=== PATIENT | female | born 1980 | race Two or more races ===

== ENCOUNTER 2018-07-03 06:54 | Emergency (ER) | payer OTHER, MEDICAID ==
[~2018-07-03] VITALS: Ht 160 cm; Wt 72.6 kg
[~2018-07-03 06:54] MED LIST: NKM
[2018-07-03 07:13] LABS: APPEARANCE,URINE CLEAR; BILIRUBIN, URINE NEGATIVE (NEGATIVE); GLUCOSE, URINE (UA) NEGATIVE (NEGATIVE); KETONES,URINE NEGATIVE (NEGATIVE); LEUKOCYTE ESTERASE ,URINE 2+ (NEGATIVE); NITRITE,URINE NEGATIVE (NEGATIVE); PH,URINE 5 (4.5-8.0); PROTEIN,URINE NEGATIVE (NEGATIVE); UROBILINOGEN,URINE NORMAL MG/DL (0.0-1.0)
--- NOTE | 2018-07-03 07:14 | Emergency Room Report ---
History of Present Illness General Chief Complaint: Abdominal Pain Source: Patient Present Illness HPI 37yo F p/w 2 days of LLQ abdominal pain, moderate to severe, constant, worse today, denies n/v denies f/c, diarrhea/constipation, vaginal discharge/itching/burning, but does report just now her urine was ceramic coater machine temperature. 2 days ago she took tylenol for it with good relief, and reports no other alleviating/exacerbating factors. Allergies: Coded Allergies: No Known Allergies (Unverified , 02/12/15) Patient History Past Medical History: see triage record Last Menstrual Period: 04/2018 Now: No : 3 Para: 3 Reviewed Nursing Documentation: PMH: Agreed; PSxH: Agreed Nursing Documentation-PMH Past Medical History: No Stated History Hx Hypertension: No Review of Systems All Other Systems: negative except mentioned in HPI Physical Exam Vital Signs Date Time Temp Pulse Resp B/P (MAP) Pulse Ox O2 Delivery O2 Flow Rate FiO2 07/03/18 06:56 98.0 90 14 140/87 98 Room Air 98.1 Sp02 EP Interpretation: reviewed, normal General Appearance: no apparent distress, alert, non-toxic Head: normocephalic Eyes: bilateral eye normal inspection, bilateral eye PERRL, bilateral eye EOMI ENT: normal ENT inspection, hearing grossly normal, normal pharynx, no angioedema, normal voice, moist mucus membranes Neck: normal inspection, full range of motion, supple, supple/symm/no masses Respiratory: chest non-tender, lungs clear, normal breath sounds, chest symmetrical, palpation of chest normal Cardiovascular #1: normal peripheral pulses, regular rate, rhythm Cardiovascular #2: 2+ radial (R), 2+ radial (L), 2+ dorsalis pedis (R), 2+ dorsalis pedis (L) Gastrointestinal: normal inspection, non tender - LLQ tenderness, soft, no mass , no guarding, no rebound Rectal: deferred Genitourinary: normal inspection, no CVA tenderness Musculoskeletal: back normal, gait/station normal, normal range of motion, non- tender, no calf tenderness Neurologic: alert, responsive, binding stitcher III-XII nml as tested, motor strength/tone normal, sensory intact, speech normal Psychiatric: judgement/insight normal, memory normal, mood/affect normal Skin: normal color, no rash, warm/dry, normal turgor Lymphatic: no adenopathy Medical Decision Making Diagnostic Impression: Primary Impression: Ovarian cyst ER Course Patient with LLQ pain, mild tenderness, appears non-toxic. Labs unremarkable, but ua with blood and wbc's. Suspect ovarian cyst vs. torsion. CT shows ovarian cyst. US with L sided hemorrhagic ovarian cyst, good blood flow, no torsion. Patient will be given NSAIDs, macrobid, f/u with [employer] instructions. Dx: ovarian cyst. CT/MRI/US Diagnostic Results CT/MRI/US Diagnostic Results #1: Imaging Test Ordered: ct abd/pelvis noncontrast Impression Limited exam without intravenous and oral contrast. Within these limitations: * No evidence of bowel obstruction or inflammation. Specifically no evidence of appendicitis or diverticulitis. * 4 cm low-attenuation left adnexal lesion likely cyst. Further evaluation with pelvic ultrasound recommended as clinically indicated. CT/MRI/US Diagnostic Results #2: Imaging Test Ordered: pelvic US Impression Left-sided hemorrhagic ovarian cyst, measuring 4 cm tender, however good blood flow bilaterally with no evidence of torsion Reevaluation Time: 07:59 Last Vital Signs Date Time Temp Pulse Resp B/P (MAP) Pulse Ox O2 Delivery O2 Flow Rate FiO2 07/03/18 06:56 98.0 90 14 140/87 98 Room Air 98.1 Status: unchanged Reevaluation Impression Despite morphine and zofran, patient still with persistent LLQ pain and tenderness. Labs with no obvious pathology, but UA with blood, few WBCs, Upreg negative. Will give IV toradol, obatin pelvic US for r/o torsion and ct abd/ pelvis for possible renal stone. Patient with possible diverticulitis, but less likely given age, normal WBC count on CBC, no fever. She has had normal BM 's so do not suspect SBO or infectious colitis or enteritis. Disposition: HOME, SELF-CARE Condition: Stable Scripts Nitrofurantoin Monohyd/M-Cryst* (MACROBID 100 MG*) 100 Mg Capsule 100 MG ORAL EVERY 12 HOURS for 7 Days, #14 CAP Prov: TORRES,AZAM M.D 07/03/18 Tramadol Hcl* (ULTRAM*) 50 Mg Tablet 50 MG ORAL Q6H PRN for For Pain, #4 TAB 0 Refills Prov: TORRES,AZAM M.D 07/03/18 Ibuprofen* (MOTRIN*) 600 Mg Tablet 600 MG ORAL Q8H PRN for For Pain, #15 TAB 0 Refills Prov: AZAM TORRES M.D 07/03/18 AZAM TORRES M.D Jul 03, 2018 07:14
[2018-07-03] MEDS ORDERED: Morphine Sulfate 4mg/ml Inj (IV USE ONLY) IVP ONE (07:15)
[2018-07-03 07:17] LABS: COLOR,URINE YELLOW
[2018-07-03 07:27] LABS: BASOPHILS % (AUTO) 0.9 % (0.0-2.0); EOSINOPHILS % (AUTO) 2.3 % (0.0-3.0); HEMATOCRIT 41.2 % (37.0-47.0); HEMOGLOBIN 13.3 G/DL (12.0-16.0); MEAN CORPUSCULAR VOLUME 78 FL (80-99); MONOCYTES % (AUTO) 9.2 % (1.0-10.0); NEUTROPHILS % (AUTO) 36.6 % (45.0-75.0); PLATELET COUNT 361 K/UL (150-450); RED BLOOD COUNT 5.28 M/UL (4.20-5.40); WHITE BLOOD COUNT 7.9 K/UL (4.8-10.8)
[2018-07-03 07:39] LABS: ANION GAP 9 mmol/L (5-15); BLOOD UREA NITROGEN 9 mg/dL (7-18); CALCIUM 9.2 MG/DL (8.5-10.1); CARBON DIOXIDE 26 MMOL/L (21-32); CHLORIDE 105 MMOL/L (98-107); CREATININE 0.4 MG/DL (0.55-1.30); POTASSIUM 3.3 MMOL/L (3.5-5.1); SODIUM 140 MMOL/L (136-145)
[2018-07-03 07:43] LABS: ALANINE AMINOTRANSFERASE 28 U/L (12-78); ALBUMIN 3.4 G/DL (3.4-5.0); ALBUMIN/GLOBULIN RATIO 0.8 (1.0-2.7); ALKALINE PHOSPHATASE 159 U/L (46-116); ASPARTATE AMINO TRANSFERASE 19 U/L (15-37); BILIRUBIN,TOTAL 0.5 MG/DL (0.2-1.0)
[2018-07-03 07:58] VITALS: BP 140/87
[2018-07-03] MEDS ORDERED: Ketorolac 30mg Inj IV ONE (08:00)
--- NOTE | 2018-07-03 08:45 | Diagnostic Imaging Report ---
Indication: Trauma pain Technique: Noncontrast CT of the abdomen and pelvis utilizing automated exposure control. Axial, sagittal and coronal reformats presented. CT dose: Total DLP 822.52 mGycm; CTDI vol 17.49 mGy Comparison: None Findings: Please note that evaluation of the abdominal and pelvic viscera and vascular structures is limited without the use of intravenous and oral contrast. Within these limitations the following observations are made: Imaged lung bases clear. Heart size within normal limits. No pericardial effusion. Noncontrast evaluation of the liver, gallbladder, spleen, adrenal glands and pancreas grossly unremarkable. Kidneys are symmetric in size. No urinary tract stone or hydronephrosis bilaterally. Bladder is unremarkable. Uterus is unremarkable. There is a 4 cm low-attenuation left adnexal lesion may represent a cyst. There is no free intraperitoneal air or fluid. There is no evidence of bowel obstruction or definite inflammatory change in the mesentery. A normal appendix is identified in the right lower quadrant. No bulky/conglomerate lymphadenopathy identified. The abdominal aorta is normal in caliber. No acute osseous abnormality. IMPRESSION: Limited exam without intravenous and oral contrast. Within these limitations: * No evidence of bowel obstruction or inflammation. Specifically no evidence of appendicitis or diverticulitis. * 4 cm low-attenuation left adnexal lesion likely cyst. Further evaluation with pelvic ultrasound recommended as clinically indicated. The CT scanner at [facility] is accredited by the [employer] [place] [employer] and the scans are performed using protocols designed to limit radiation exposure to as low as reasonably achievable to attain images of sufficient resolution adequate for diagnostic evaluation.
[2018-07-03] MEDS ORDERED: IBUPROFEN600 MG ORAL (08:58)
[2018-07-03] MEDS ORDERED: TRAMADOL HCL50 MG ORAL (08:58)
[2018-07-03] MEDS ORDERED: NITROFURANTOIN100 M2 ORAL (09:00)
--- NOTE | 2018-07-03 09:21 | Diagnostic Imaging Report ---
Indication: Abdominal/pelvic pain. Technique: Transabdominal and endovaginal pelvic ultrasound was performed. Findings: Uterus measures 7.7 x 6.7 x 4.9 cm. Endometrium measures between 9 and 11 mm, within normal physiologic limits for a premenopausal female. Multiple nabothian cysts in the cervix. The right ovary measures 3 x 2.6 x 2.4 cm the left ovary measures 4.9 x 5.3 x 3.6 cm. A cystic structure in the left ovary measures up to 4.5 x 2.7 cm. There is some possible low level internal echoes within this culture. Color and Doppler flow noted to the bilateral ovaries; no evidence of ovarian torsion. No free pelvic fluid. IMPRESSION: 4.5 cm left ovarian lesion with some lacy internal echoes. This may represent a hemorrhagic cyst, although additional etiologies not excluded Follow-up ultrasound in 6 weeks recommended. No evidence of ovarian torsion.
[2018-07-03 09:30] VITALS: BP 136/79
== END 2018-07-03 09:32 | disposition home or self-care (01) ==
LOC: EMR 07:17
DX: N83.202 Unspecified ovarian cyst, left side (principal)
CPT/HCPCS: 36415; 74176; 76830; 76856; 80053; 81003; 81025; 83690; 85025; 96361; 96374; 96375; 99284; J1885; J2270; J2405; J8499

== ENCOUNTER 2018-07-08 23:29 | Emergency (ER) | payer OTHER, MEDICAID ==
[~2018-07-08] VITALS: Ht 160 cm; Wt 72.6 kg
[~2018-07-08 23:29] MED LIST changes: +IBUPROFEN600 MG ORAL; +NITROFURANTOIN100 M2 ORAL; +TRAMADOL HCL50 MG ORAL
[2018-07-09 00:03] VITALS: BP 119/74
[2018-07-09] MEDS ORDERED: BUSPAR10 MG ORAL (01:16)
--- NOTE | 2018-07-09 01:16 | Emergency Room Report ---
History of Present Illness General Chief Complaint: General Complaint Source: Patient Present Illness HPI Is a 37-year-old female who presents with chief complaint of nerves breakdown/ anxiety. She said she had a lot of stress today. [place]ountain very anxious. Was drinking alcohol to see what help. Denies any suicidal thought homicidal thought. Denies any pain. Nothing made it better. Nothing made it worse. Denies any other complaint. Allergies: Coded Allergies: No Known Allergies (Unverified , 02/12/15) Patient History Past Medical History: see triage record, old chart reviewed Past Surgical History: none Pertinent Family History: none Social History: Denies: smoking Last Menstrual Period: 2 months ago Now: No Immunizations: other Reviewed Nursing Documentation: PMH: Agreed; PSxH: Agreed Nursing Documentation-PMH Past Medical History: No Stated History Hx Hypertension: No Review of Systems Eye: Denies: eye pain, blurred vision ENT: Denies: ear pain, nose congestion, throat swelling Respiratory: Denies: cough, shortness of breath Cardiovascular: Denies: chest pain, palpitations Gastrointestinal: Denies: abdominal pain, diarrhea, nausea, vomiting Musculoskeletal: Denies: back pain, joint pain Skin: Denies: rash Psychiatric: Reports: anxiety Neurological: Denies: headache, numbness Endocrine: Denies: increased thirst, increased urine Hematologic/Lymphatic: Denies: easy bruising All Other Systems: negative except mentioned in HPI Physical Exam Vital Signs Date Time Temp Pulse Resp B/P (MAP) Pulse Ox O2 Delivery O2 Flow Rate FiO2 07/08/18 23:33 98.0 116 18 119/74 96 Room Air 98.1 vitals with tachycardia Sp02 EP Interpretation: reviewed, normal General Appearance: well appearing, no apparent distress, alert Head: normocephalic, atraumatic Eyes: bilateral eye PERRL, bilateral eye EOMI ENT: hearing grossly normal, normal pharynx Neck: full range of motion, supple, no meningismus Respiratory: chest non-tender, lungs clear, normal breath sounds Cardiovascular #1: regular rate, rhythm, no murmur Gastrointestinal: normal bowel sounds, non tender, no mass, no organomegaly, no bruit, non-distended Musculoskeletal: back normal, gait/station normal, normal range of motion Neurologic: alert, oriented x3 Psychiatric: depressed affect, anxious Skin: warm/dry Medical Decision Making Diagnostic Impression: Primary Impression: Anxiety ER Course Patient with anxiety. Her heart rate was a little elevated. Most likely secondary to alcohol. Is no criteria for 5150. She felt better and sleeping comfortably here. We'll discharge home. No other drug use. Last Vital Signs Date Time Temp Pulse Resp B/P (MAP) Pulse Ox O2 Delivery O2 Flow Rate FiO2 07/09/18 00:03 98.1 110 18 119/74 96 Room Air 98.1 Status: improved Disposition: HOME, SELF-CARE Condition: Stable Scripts Buspirone Hcl* (BUSPAR*) 10 Mg Tablet 10 MG ORAL THREE TIMES A DAY, #21 TAB 0 Refills Prov: MADISYN SMITH M.D. 07/09/18 Referrals: [facility],REFERRING (PCP) Additional Instructions: Follow-up with your doctor in 7 days. You may benefit from referral to see a psychologist or psychiatrist. Return if symptom worsen. MADISYN SMITH M.D. Jul 09, 2018 01:16
[2018-07-09 02:03] VITALS: BP 109/59
[2018-07-09 04:47] VITALS: BP 127/73
[2018-07-09 05:01] VITALS: BP 127/73
== END 2018-07-09 05:00 | disposition home or self-care (01) ==
LOC: EMR 23:59
DX: F41.9 Anxiety disorder, unspecified (principal)
CPT/HCPCS: 80307; 99283

== ENCOUNTER → 2018-08-25 | Emergency (ER) | payer OTHER, MEDICAID ==
[~2018-08-25] VITALS: Ht 160 cm; Wt 72.6 kg
[~2018-08-25] MED LIST changes: +BUSPAR10 MG ORAL; +Bacitracin Oint UD TOPIC ONE; +CLINDAMYCIN HC300 MG ORAL; +Clindamycin 150mg cap ORAL ONE; +HYDROCODON-ACE1 EA15 ORAL; +Norco 5mg/325mg tab ORAL ONE
[2018-08-25 22:44] VITALS: BP 162/74
--- NOTE | 2018-08-25 22:56 | Emergency Room Report ---
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 She presents with a rash to her abdomen. Onset is morning. He was itching and burning. Now is red and localized to the left lower quadrant. Pain is 9 out of 10. Burning sensation. No nausea no vomiting. No blister. No drainage. Never had this problem before. Nothing made it better. Any scratching or palpation made it worse. Allergies: Coded Allergies: No Known Allergies (Unverified , 02/12/15) Patient History Past Medical History: see triage record, old chart reviewed Past Surgical History: other Pertinent Family History: none Social History: Denies: smoking Last Menstrual Period: 08/08/2018 Now: No Para: 3 Immunizations: other Reviewed Nursing Documentation: PMH: Agreed; PSxH: Agreed Nursing Documentation-PMH Past Medical History: No Stated History Hx Hypertension: No Review of Systems Eye: Denies: eye pain, blurred vision ENT: Denies: ear pain, nose congestion, throat swelling Respiratory: Denies: cough, shortness of breath Cardiovascular: Denies: chest pain, palpitations Gastrointestinal: Denies: abdominal pain, diarrhea, nausea, vomiting Musculoskeletal: Denies: back pain, joint pain Skin: Reports: rash Neurological: Denies: headache, numbness Endocrine: Denies: increased thirst, increased urine Hematologic/Lymphatic: Denies: easy bruising All Other Systems: negative except mentioned in HPI Physical Exam Vital Signs Date Time Temp Pulse Resp B/P (MAP) Pulse Ox O2 Delivery O2 Flow Rate FiO2 08/25/18 22:31 98.2 119 16 162/74 97 Room Air 98.2 vitals with high blood pressure Sp02 EP Interpretation: reviewed, normal General Appearance: well appearing, no apparent distress, alert Head: normocephalic, atraumatic Eyes: bilateral eye PERRL, bilateral eye EOMI ENT: hearing grossly normal, normal pharynx Neck: full range of motion, supple, no meningismus Respiratory: chest non-tender, lungs clear, normal breath sounds Cardiovascular #1: regular rate, rhythm, no murmur Gastrointestinal: normal bowel sounds, non tender, no mass, no organomegaly, no bruit, non-distended Musculoskeletal: back normal, gait/station normal, normal range of motion Neurologic: alert, oriented x3 Psychiatric: mood/affect normal Skin: warm/dry, rash - Patient with an erythematous lesions/rash in a bandlike distribution to the left lower quadrant. It does cross midline past the umbilicus few centimeter. No vesicles. No crepitance. Warm to the touch. Medical Decision Making Diagnostic Impression: Primary Impression: Cellulitis of left abdominal wall ER Course Patient with a cellulitis of the left lower abdominal wall. No evidence of any abscess or necrotizing fasciitis. Unlikely to be shingles because crossed midline and no vesicles. We'll treat for potential MRSA. Last Vital Signs Date Time Temp Pulse Resp B/P (MAP) Pulse Ox O2 Delivery O2 Flow Rate FiO2 08/25/18 22:44 98.2 120 16 162/74 97 Room Air 98.2 Status: unchanged Disposition: HOME, SELF-CARE Condition: Stable Scripts Ibuprofen* (MOTRIN*) 600 Mg Tablet 600 MG ORAL THREE TIMES A DAY, #30 TAB 0 Refills Prov: MADISNY SMITH M.D. 08/25/18 Hydrocodone/Acetaminophen 5-325* (HYDROCODONE/ACETAMINOPHEN 5-325*) 1 Each Tablet 1 TAB ORAL Q6H PRN for For Pain, #15 TAB 0 Refills Prov: MADISYN SMITH M.D. 08/25/18 Clindamycin Hcl (CLINDAMYCIN HCL) 300 Mg Capsule 300 MG ORAL THREE TIMES A DAY, #21 CAP Prov: MADISYN SMITH M.D. 08/25/18 Additional Instructions: follow-up with your DrClara in 2 to 3 days for recheck. Return if worse. MADISYN SMITH M.D. Aug 25, 2018 22:56
[2018-08-25 23:56] VITALS: BP 165/86
== END | disposition home or self-care (01) ==
LOC: EMR 22:47
DX: L03.311 Cellulitis of abdominal wall (principal)
CPT/HCPCS: 99283

== ENCOUNTER 2019-04-11 08:50 | Emergency (ER) | payer MEDICAID, OTHER ==
[~2019-04-11] VITALS: Ht 160 cm; Wt 77.1 kg
[~2019-04-11 08:50] MED LIST changes: -Bacitracin Oint UD TOPIC ONE; -Clindamycin 150mg cap ORAL ONE; -Norco 5mg/325mg tab ORAL ONE
--- NOTE | 2019-04-11 09:07 | NUR ---
ED Nurse Note: Pt came in the ER from work ([employer] [facility] [place]) for R ankle pain. Pt twisted her ankle 30 mins prior to arrival when walking down the stairs but did not fall. Pain 06/10 samuel. AOx4, VSS samuel. Will cont to monitor.
--- NOTE | 2019-04-11 09:12 | Emergency Room Report ---
History of Present Illness General Chief Complaint: Pain Source: Patient Present Illness HPI Patient present with complaints of right ankle discomfort she was coming down stairs when she twisted her right ankle pain is localized to the lateral aspect and some posteriorly denies any foot pain denies any knee pain Denies any other trauma to the head Pain is 5 out of 10 worse with bearing weight Allergies: Coded Allergies: No Known Allergies (Unverified , 02/12/15) Patient History Past Medical History: see triage record Pertinent Family History: none Last Menstrual Period: 03/31/2019 Now: No : 3 Para: 3 Reviewed Nursing Documentation: PMH: Agreed; PSxH: Agreed Nursing Documentation-PMH Hx Hypertension: Yes Review of Systems All Other Systems: negative except mentioned in HPI Physical Exam Vital Signs Date Time Temp Pulse Resp B/P (MAP) Pulse Ox O2 Delivery O2 Flow Rate FiO2 04/11/19 08:56 96.1 99 18 96 Room Air Sp02 EP Interpretation: reviewed, normal General Appearance: well appearing, no apparent distress Head: normocephalic, atraumatic Eyes: bilateral eye PERRL, bilateral eye EOMI ENT: hearing grossly normal, normal pharynx Neck: supple Respiratory: lungs clear Cardiovascular #1: regular rate, rhythm Gastrointestinal: soft Musculoskeletal: other - Minimal swelling and some discomfort to the lateral right ankle sensory intact, Neurologic: alert, oriented x3, responsive Skin: normal color, no rash Lymphatic: no adenopathy Procedures Splinting Splinting : Consent: Verbal Location: Right ankle Pre-Made Type: aircast Splint: sugar-tong Pre-Proc Neuro Vasc Exam: normal Post-Proc Neuro Vasc Exam: normal Patient Tolerated: Well Complications: None Medical Decision Making Diagnostic Impression: Primary Impression: Ankle sprain ER Course Given the patient's history and exam x-ray imaging was obtained no obvious acute pathology is seen given the patient's swelling and discomfort splint was applied patient will have limited use of the right foot for the next 2 days and requires close follow-up by Worker's Compensation Other X-Ray Diagnostic Results Other X-Ray Diagnostic Results : X-Ray ordered: right ankle # of Views/Limited Vs Complete: 3 View Indication: Pain EP Interpretation: Yes Interpretation: no dislocation, no soft tissue swelling, no fractures Impression: No acute disease Electronically Signed by: Chelsi Rice DO Last Vital Signs Date Time Temp Pulse Resp B/P (MAP) Pulse Ox O2 Delivery O2 Flow Rate FiO2 04/11/19 08:56 96.1 99 18 96 Room Air Status: improved Disposition: HOME, SELF-CARE Condition: Improved Additional Instructions: Patient is provided with the discharge instructions notified to follow up with primary doctor in the next 2-3 days otherwise return to the er with any worsening symptoms. Please note that this report is being documented using DRAGON technology. This can lead to erroneous entry secondary to incorrect interpretation by the dictating instrument. Chelsi Rice DO April 11, 2019 09:12
[2019-04-11 09:33] VITALS: BP 139/87
--- NOTE | 2019-04-11 09:33 | NUR ---
ER DISCHARGE NOTE: Patient is cleared to be discharged per ERMD, pt is aox4, on room air, with stable vital signs. pt was given dc and prescription instructions, pt was able to verbalize understanding, pt id band removed. pt is able to ambulate with steady gait. pt took all belongings.
--- NOTE | 2019-04-11 10:08 | Diagnostic Imaging Report ---
EXAM: XR Right Ankle Complete, 3 or More Views CLINICAL HISTORY: TRAUMA TECHNIQUE: Frontal, lateral and oblique views of the right ankle. COMPARISON: No relevant prior studies available. FINDINGS: Bones/joints: Unremarkable. No visible displaced ankle fracture or dislocation. Ankle mortise and talar dome appear unremarkable. Visualized joint spaces appear unremarkable. Soft tissues: Unremarkable. No radiodense foreign bodies. No soft tissue gas lucencies. IMPRESSION: Unremarkable right ankle x-rays.
== END 2019-04-11 09:33 | disposition home or self-care (01) ==
LOC: EMR 09:20
DX: S93.401A Sprain of unspecified ligament of right ankle, initial encounter (principal); X50.1XXA Overexertion from prolonged static or awkward postures, initial encounter; Y92.9 Unspecified place or not applicable; I10 Essential (primary) hypertension
CPT/HCPCS: 29515; 99283

== ENCOUNTER 2020-11-17 15:07 | Emergency (ER) | payer MEDICAID, OTHER ==
[~2020-11-17] VITALS: Ht 160 cm; Wt 79.4 kg
[2020-11-17 15:41] VITALS: BP 112/71
--- NOTE | 2020-11-17 17:01 | Emergency Room Report ---
History of Present Illness General Chief Complaint: Upper Respiratory Illness Source: Patient Present Illness HPI 40-year-old female with past medical history of Graves' disease presents to the emergency department complaining of cough and 8 out of 10 severity chest tightness as well as pain in the back since yesterday. Patient reports that she had a Covid test 1 week ago which was negative. Patient reports that she fully recovered from URI that she had 2 weeks ago. Patient denies fevers or chills. She denies sputum production. Pt. denies hemoptysis, recent travel, recent immobilization, smoking/tobacco use or hormone use/ control. Pt. reports tenderness in the sternal area and exacerbation with deep inhalation or coughing. Pt. denies pain at rest. Pt. reports no change in symptoms with lying down/sitting up or bending forward. Patient reports she recently was changed on her medication for Graves'. Patient reports she has been taking propylthiouracil x 2 weeks. which is new for her. She denies ST, nasal congestion, ear pain, SHEPARD, neck pain/stiffness, syncope, palpitations, dizziness or hx of asthma/ COPD. She denies hx of GERD. Allergies: Coded Allergies: No Known Allergies (Unverified , 02/12/15) COVID-19 Screening Contact w/high risk pt: Yes Experienced COVID-19 symptoms?: Yes COVID-19 Testing performed BRAZER ELECTRONIC: Yes COVID-19 Screening: Negative COVID-19 COVID-19 Testing Source: nasal Patient History Past Medical History: see triage record Past Surgical History: none Pertinent Family History: none Now: No Reviewed Nursing Documentation: PMH: Agreed; PSxH: Agreed Nursing Documentation-PMH Past Medical History: No Stated History Hx Hypertension: Yes Review of Systems All Other Systems: negative except mentioned in HPI Physical Exam Vital Signs Date Time Temp Pulse Resp B/P (MAP) Pulse Ox O2 Delivery O2 Flow Rate FiO2 11/17/20 15:31 98.4 79 16 135/89 (104) 98 Room Air Sp02 EP Interpretation: reviewed, normal General Appearance: no apparent distress, alert, GCS 15, non-toxic Head: normocephalic, atraumatic Eyes: bilateral eye normal inspection, bilateral eye PERRL ENT: hearing grossly normal, normal voice Neck: full range of motion Respiratory: lungs clear, normal breath sounds, no respiratory distress, no accessory muscle use, no wheezing, speaking full sentences, other - reproducible with sternal palpation and palpation of the right rhomboid Cardiovascular #1: regular rate, rhythm, no edema, normal capillary refill Musculoskeletal: back normal, normal range of motion, gait/station normal, non- tender Neurologic: alert, motor strength/tone normal, oriented x3, sensory intact, responsive, speech normal Psychiatric: judgement/insight normal Skin: no rash, normal color Lymphatic: no adenopathy Medical Decision Making PA Attestation Dr. Burnette is my supervising Physician whom patient management has been discussed with. Diagnostic Impression: Primary Impression: Pleuritis Additional Impressions: Chills Cough in adult ER Course 40-year-old female with past medical history of Graves' disease presents to the emergency department complaining of cough and 8 out of 10 severity chest tightness as well as pain in the back since yesterday. Patient reports that she had a Covid test 1 week ago which was negative. Patient reports that she fully recovered from URI that she had 2 weeks ago. Patient denies fevers or chills. She denies sputum production. Pt. denies hemoptysis, recent travel, recent immobilization, smoking/tobacco use or hormone use/ control. Pt. reports tenderness in the sternal area and exacerbation with deep inhalation or coughing. Pt. denies pain at rest. Pt. reports no change in symptoms with lying down/sitting up or bending forward. Patient reports she recently was changed on her medication for Graves'. Patient reports she has been taking propylthiouracil x 2 weeks. which is new for her. She denies ST, nasal congestion, ear pain, SHEPARD, neck pain/stiffness, syncope, palpitations, dizziness or hx of asthma/ COPD. She denies hx of GERD. Ddx considered but are not limited to COVID-19, bronchitis, pleurisy, pericarditis, MA, pneumonia costochondritis, PE, ACS, aortic dissection just to name a few. Vital signs: are WNL, pt. is afebrile H&PE are most consistent with patient with no cardiac risk factors that has a nontoxic appearance as well as currently in no acute distress. Patient does not demonstrate signs of being in respiratory distress or increased respiratory effort. Pain is reproducible PERC Negative ORDERS: - EK NSR with incomplete RBBB- no previous EKG for comparison ED INTERVENTIONS: - none required at this time. I discussed with this patient the abnormal finding on EKG and my concern for her to have cardiology follow-up. Collaborative decision with patient for outpatient conservative treatment ( NSAIDS) and strict ED return Precautions. Patient was provided a copy of her EKG. She verbalized her understanding and agreement with cardiology follow-up. Pt given strict ED return precautions. DISCHARGE: At this time pt. is stable for d/c to home. Will provide printed patient care instructions, and any necessary prescriptions. Care plan and follow up instructions have been discussed with the patient prior to discharge. EKG Diagnostic Results Troponin ordered: No EKG Time: 16:24 Rate: normal - 80 bpm Rhythm: NSR ST Segments: no acute changes Other Impression incomplete RBBB, -- no available ekg for comparison ASA given to the pt in ED: No PA Scribe Text This Interpretation was scribed by CYRIL Greene. Last Vital Signs Date Time Temp Pulse Resp B/P (MAP) Pulse Ox O2 Delivery O2 Flow Rate FiO2 11/17/20 15:31 98.4 79 16 135/89 (104) 98 Room Air Disposition: HOME, SELF-CARE Condition: Stable Scripts Ibuprofen* (MOTRIN*) 600 Mg Tablet 600 MG ORAL THREE TIMES A DAY, #20 TAB Prov: La Greene 11/17/20 Referrals: NON PHYSICIAN (PCP) Departure Forms: Return to Work Return to Work Date: Nov 19, 2020 Other Restrictions: May return Sooner if Symptoms have resolved. Return to Full Activity: Nov 19, 2020 Work Restrictions: None Patient Instructions: Pleurisy Additional Instructions: Take medications as directed. Follow up with a Primary Care Provider in 3-5 days, even if your symptoms have resolved. 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 Return sooner to ED if new symptoms occur, or current symptoms become worse. - Please note that this Emergency Department Report was dictated using [employer] manager technology software, occasionally this can lead to erroneous entry secondary to interpretation by the dictation equipment. La Greene Nov 17, 2020 17:01
[2020-11-17] MEDS ORDERED: IBUPROFEN600 M1 ORAL (17:02)
[2020-11-17 17:17] VITALS: BP 114/90
== END 2020-11-17 17:17 | disposition home or self-care (01) ==
LOC: EEVIPCON 15:55 → EMR 15:55
DX: R09.1 Pleurisy (principal); R68.83 Chills (without fever); R05 Cough; E05.00 Thyrotoxicosis with diffuse goiter without thyrotoxic crisis or storm; I10 Essential (primary) hypertension; Z79.899 Other long term (current) drug therapy
CPT/HCPCS: 93005; Z7502; 99283